=== PATIENT | male | born 1970 | race Caucasian/White ===

== ENCOUNTER 2020-05-14 20:00 | Outpatient (CLI) | payer OTHER, BC, SELFPAY | END 2020-05-14 20:01 | disposition home or self-care (01) | LOC: SLEEP 05-15 09:07 | PROVIDERS: Family Provider Internal Medicine; PCP Nurse Practitioner; Visit Provider Nurse Practitioner Family | DX: G47.33 Obstructive sleep apnea (adult) (pediatric) (principal) | CPT/HCPCS: 95810 ==

== ENCOUNTER 2020-06-11 20:00 | Outpatient (CLI) | payer OTHER, BC, SELFPAY | END 2020-06-11 20:01 | disposition home or self-care (01) | LOC: SLEEP 06-12 10:13 | PROVIDERS: Family Provider Internal Medicine; PCP Nurse Practitioner; Visit Provider Nurse Practitioner Family | DX: G47.33 Obstructive sleep apnea (adult) (pediatric) (principal) | CPT/HCPCS: 95811 ==

== ENCOUNTER 2021-11-13 10:24 | Outpatient (CLI) | payer OTHER, BC, SELFPAY ==
--- NOTE | 2021-11-13 10:37 | XR_ITS ---
WS: [id number] Chest 2 views, 11/13/2021 Clinical Data: BRONCHITIS Comparison: PA chest, 07/22/2011. Findings: No nodules, masses or effusions are seen. The heart is normal. The pulmonary vascularity is not increased. No pneumonia or pneumothorax is seen. XR/XR chest 2V* [id number] Impression: Negative chest.
== END 2021-11-13 10:25 | disposition home or self-care (01) ==
LOC: RAD 10:28
PROVIDERS: PCP Nurse Practitioner Family; Visit Provider Nurse Practitioner Family
DX: J40 Bronchitis, not specified as acute or chronic (principal); R21 Rash and other nonspecific skin eruption
CPT/HCPCS: 71046

== ENCOUNTER → 2022-02-03 15:03 | Outpatient (BNVA) | payer OTHER, BC, SELFPAY | PROVIDERS: PCP Nurse Practitioner Family; Visit Provider Internal Medicine Pulmonary Disease | DX: R06.09 Other forms of dyspnea (principal); R06.2 Wheezing; R06.02 Shortness of breath; R05.3 Chronic cough | CPT/HCPCS: 36415; 82785; 85025; 86003 ==

== ENCOUNTER 2022-02-20 06:32 | Day surgery (SDC) | payer OTHER, BC, SELFPAY ==
[2022-02-18 10:20] VITALS: BMI 27.1
[2022-02-20 06:49] VITALS: BP 125/90; PULSE 68; RESP 18; TEMP 36.1; O2SAT 96
[2022-02-20] MEDS: sodium chloride 0.9% 1,000 ML 30 ML IV (07:00)
--- NOTE | 2022-02-20 07:54 | W.PM.OPSFHP ---
Same Day Surgery H&P Indication for Procedure/HPI DATE OF PROCEDURE: February 20, 2022 CHIEF COMPLAINT/INDICATIONFOR SURGICAL PROCEDURE: Screening colonoscopy PREOP DIAGNOSIS: Screening colonoscopy PLANNED PROCEDURE: Operation Date: 02/20/22 08:00 Proposed Procedures p Colonoscopy [id number](Not Applicable) - Roby Walters MD This is a pleasant 51 years old gentleman never had a colonoscopy before and denies bleeding per rectum, he does give history of his father at age of 82 diagnosed with colon cancer. No history of weight loss, no previous abdominal surgeries. ROS All systems have been reviewed negative except as for the above or per problem list. Medications/Allergies* Allergies/Adverse Reactions Allergy/AdvReac Type Severity Reaction Status Date / Time Penicillins Allergy Intermediate Unknown Verified 02/20/22 07:58 Pertinent History/Comorbid Conditions* Social History Smoking and tobacco status: former smoker Pertinent Exam Findings alert, oriented x 3, clear to auscultation bilaterally, regular rate & rhythm and procedure specific exam findings (Abdominal exam not tender nondistended soft) Recommendations Surgery/Procedure today (Colonoscopy) Other Plans: Plan of care; After thorough history and physical examination and reviewing the chart, plan to perform screening colonoscopy. I discussed with the patient in details the risks,benefits,alternatives and indications.The risk of aspiration, bleeding, soft tissue injury, perforation of the colon and other potential concomitant complications were explained to the patient in details,also the potential need for Laproscoy/Laparotomy to repair any related complications including but not limited to colectomy and or Closotomy.The patient understood this well and did agree to proceed. Rationale was carefully and clearly discussed with the patient.Appropriate informed consent have been reviewed and signed All questions have been answered and all concerns have been addressed to patient's satisfaction. Verbal and written Instructions were given to the patient for colonoscopy prep Coding Level of Care Code Acute Human Anatomy Teacher for Kurt Kelly
[2022-02-20 08:22] VITALS: BP 99/71; PULSE 59; RESP 16; TEMP 36.3; O2SAT 96
[2022-02-20 08:49] VITALS: BP 128/87; PULSE 57; RESP 18; O2SAT 98
--- NOTE | 2022-02-20 13:35 | ANE.PACU2 ---
Inpatient post-anesthesia follow up: Airway intact: Yes Vital signs: Temperature 97.3 F Pulse Rate 57 Respiratory Rate 18 Blood Pressure 128/87 Pulse Oximetry 98 Oxygen Delivery Me thod Room Air Oxygen Flow Rate Fraction of Inspir ed Oxygen Hydration adequate: Yes Nausea and vomiting: No Pain level: 1 Mental status: Baseline
== END 2022-02-20 08:58 | disposition home or self-care (01) ==
PROVIDERS: PCP Nurse Practitioner Family; Visit Provider Surgery
PROC: 0DJD8ZZ Inspection of Lower Intestinal Tract, Via Natural or Artificial Opening Endoscopic (ICD-10-PCS; CPT 45378; principal; 2022-02-20 08:00)
DX: Z12.11 Encounter for screening for malignant neoplasm of colon (principal); D12.4 Benign neoplasm of descending colon; Z87.891 Personal history of nicotine dependence; Z88.0 Allergy status to penicillin; Z80.0 Family history of malignant neoplasm of digestive organs
CPT/HCPCS: 45385; 88305; J2001; J2704; J7030

== ENCOUNTER 2022-03-04 12:39 | Outpatient (CLI) | payer OTHER, BC, SELFPAY ==
--- NOTE | 2022-03-04 14:58 | PFTS_ITS ---
Date of Study:03/04/22 Date of Dictation: MECHANICS: Forced vital capacity (FVC) is . Forced expiratory volume in one second (FEV1) is . FEV1/FVC is . FLOW VOLUME LOOP: . LUNG VOLUMES: Total lung capacity (TLC) is . Residual volume (RV) is . DIFFUSING CAPACITY FOR CARBON MONOXIDE: . INTERPRETATION: The pulmonary function tests are . mechanics and lung volumes. Gas exchange (DLCO) is . MTDD
== END 2022-03-04 12:40 | disposition home or self-care (01) ==
PROVIDERS: PCP Nurse Practitioner Family; Visit Provider Internal Medicine Pulmonary Disease
DX: R05.3 Chronic cough (principal); U09.9 Post COVID-19 condition, unspecified; R06.09 Other forms of dyspnea; R06.2 Wheezing
CPT/HCPCS: 94010; 94726; 94729

== ENCOUNTER → 2022-06-24 15:41 | Outpatient (BNVA) | payer OTHER, BC, SELFPAY | PROVIDERS: PCP Nurse Practitioner Family; Referring Provider Nurse Practitioner Family; Visit Provider Orthopaedic Surgery | DX: M54.9 Dorsalgia, unspecified (principal); M47.816 Spondylosis without myelopathy or radiculopathy, lumbar region; M48.07 Spinal stenosis, lumbosacral region | CPT/HCPCS: 72110 ==

== ENCOUNTER 2022-08-05 07:07 | Outpatient (CLI) | payer OTHER, BC, SELFPAY ==
--- NOTE | 2022-08-05 07:18 | MR_ITS ---
WS: [id number] MRI LUMBAR SPINE NONCONTRAST HISTORY: Chronic low back pain down both legs. No injury. Remote history of lumbar spine surgery. COMPARISON: 08/31/2013 TECHNIQUE: Sagittal and axial multisequence imaging is submitted. Normal lumbar alignment with no compression fractures or marrow edema. Disc spaces and vertebral body heights are well-preserved. Conus terminates normally at L1. L1-L2: Normal. L2-L3: Mild thickening flavum and facet joint hypertrophy. No stenosis. L3-L4: Moderate ligamentum flavum and facet arthritis. Very minimal encroachment into the subarticula r recesses. No high-grade stenosis. L4-L5: Mild annular disc bulge with a central shallow disc protrusion. Moderate ligamentum flavum and facet arthritis. Findings are resulting in mild central with bilateral subarticular recess and damon inal stenosis. There is disc contacting the LEFT exiting L4 nerve root. L5-S1: Diffuse annular disc bulge with a central disc protrusion. Larger disc protrusion in the LEFT foramen with near complete effacement of fat. Bilateral facet joint arthritis. Moderate to severe LEF T foraminal and mild subarticular recess stenosis. Vertebral body osteophytes are also contributing t o the LEFT foraminal stenosis along with facet joint arthritis. LEFT S1 nerve root is larger and slig htly more edematous than the RIGHT. Similar to the prior study. The disc protrusion previously descri bed in the LEFT subarticular recess is resolved. MR/MR lumbar spine wo con* [id number] IMPRESSION: 1. Moderate to severe LEFT foraminal stenosis at L5-S1. Stenosis due to combin ation of facet joint arthritis, disc protrusion and vertebral body osteophytes. Significant encroachment upon the L5 nerve root. 2. Previous the described LEFT subarticular disc protrusion at L5-S1 has resol lea. 3. Mild enlargement of the LEFT S1 nerve root similar to the prior study. 4. Mild subarticular recess encroachment at L3-4 with no stenosis. 5. Mild central and bilateral subarticular recess and foraminal stenosis at L4 -5. There is disc contacting the LEFT exiting L4 nerve root.
== END 2022-08-05 07:08 | disposition home or self-care (01) ==
PROVIDERS: PCP Nurse Practitioner Family; Visit Provider Nurse Practitioner Family
DX: M54.9 Dorsalgia, unspecified (principal)
CPT/HCPCS: 72148

== ENCOUNTER → 2023-06-12 10:42 | Outpatient (BNVA) | payer OTHER, BC, SELFPAY | PROVIDERS: PCP Nurse Practitioner Family; Visit Provider Family Medicine | DX: Z01.818 Encounter for other preprocedural examination (principal) | CPT/HCPCS: 80053; 81000; 85025 ==

== ENCOUNTER 2023-06-15 09:39 | Day surgery (SDC) | payer OTHER, BC, SELFPAY ==
[2023-06-15] VITALS (12 sets, daily range): BP systolic 120–151; BP diastolic 77–92; PULSE 50–74; RESP 17–21; TEMP 36.2–36.7; O2SAT 94–98; BMI 27.8
--- NOTE | 2023-06-15 | XR_ITS ---
WS: [id number] Lumbar spine, C ARM fluoroscopy, 06/15/2023 Clinical Data: decompression. or pic Comparison: Lumbar spine, 06/24/2022 Findings: Dr. Heath performed a lumbar decompression. Impression: Lumbar decompression.
[2023-06-15] MEDS: sodium chloride 0.9% 1,000 ML 30 ML IV (10:16)
[2023-06-15] MEDS: HYDROmorphone 1 mg/mL INJ 1 mL 0.5 MG IVP (12:12)
--- NOTE | 2023-06-15 12:21 | W.PM.OPSUD ---
Surgery/Procedure H&P Update DATE OF PROCEDURE: June 15, 2023 DATE H&P PERFORMED: 06/12/23 H&P UPDATE INFORMATION: I have reviewed H&P completed within last 30 days, I have examined patient prior to procedure and No changes to prior documentation PREOP DIAGNOSIS: Lumbar stenosis PLANNED PROCEDURE: Operation Date: 06/15/23 11:40 Proposed Procedures p Lumbar Spine Decompression stand on left/ L4-5 minimally invasive decompression as well as a L5-S1 minimally invasive decompression(Not Applicable) - Gael Heath DO
[2023-06-15] MEDS: vancomycin 1,000 MG in sodium chloride 0.9% 250 ML 250 MG IV (13:06)
--- NOTE | 2023-06-15 13:09 | ANES.PREANE2 ---
Pre-Anesthetic Assessment Height/Weight: Height 1.83 m Weight 92.986 kg Temp Pulse Resp BP Pulse Ox O2 Del Method 97.3 F L 74 18 121/92 96 Room Air 06/15/23 10:06 06/15/23 10:06 06/15/23 10:06 06/15/23 10:06 06/15/23 10:06 06/15/23 10:07 Preop Diagnosis: Lumbar stenosis Operation Date: 06/15/23 11:40 Proposed Procedures p Lumbar Spine Decompression stand on left/ L4-5 minimally invasive decompression as well as a L5-S1 minimally invasive decompression(Not Applicable) - Gael Heath DO Familial anesthetic complications: none Was Beta Tu taken within 24 hours: N/A Was Clonidine taken within 24 hours: N/A Last intake: Intake Last Liquid Date 06/14/23 Last Liquid Time 19:00 Last Solid Date 06/14/23 Last Solid Time 19:00 Social No alcohol and No tobacco Exam alert, oriented x 3, clear to auscultation bilaterally and regular rate & rhythm Airway Submandibular: within normal limits Cervical ROM: within normal limits Mallampati: Class II Dentition: full CV/HEM Hypertension Musc/skel Lower Back Pain and Osteoarthritis/DJD Anesthetic Plan ASA status: 2 Anesthesia: General Medications/Allergies Home Medications Medication Instructions Recorded Confirmed Last Taken Type losartan 25 mg tablet 25 mg PO DAILY #30 tabs 11/11/22 06/15/23 06/14/23 21:00 Rx escitalopram oxalate 10 mg tablet 10 mg PO DAILY 06/12/23 06/12/23 06/12/23 History (Lexapro) Allergies Allergy/AdvReac Type Severity Reaction Status Date / Time Penicillins Allergy Intermediate Unknown Verified 06/15/23 10:02 Current Medications Generic Name Dose Route Start Last Admin Trade Name Freq PRN Reason Stop Dose Admin Sodium Chloride 1,000 mls @ 30 mls/hr 06/15/23 10:00 06/15/23 10:16 Sodium Chloride 0.9% IV 06/16/23 09:59 30 mls/hr .Q24H AUGUSTUS Administration Vancomycin HCl 1,000 mg/ 250 mls @ 250 mls/hr 06/15/23 12:49 06/15/23 13:06 Sodium Chloride IV 06/15/23 13:48 250 mls/hr ONCE ONE Administration Protocol [facility] Anesthesia Medical History Family history of colon cancer in father Social History Smoking and tobacco/nicotine status: current every day tobacco/nicotine user (chew) Data Anesthesia Cardiac Studies: No Data to Display
[2023-06-15] MEDS: thrombin 5,000 unit SDV 5000 UNIT XX (13:34)
[2023-06-15] MEDS: lidocaine-epi 2% 20 mL INJ INJECTION (13:55)
--- NOTE | 2023-06-15 14:36 | P.OP_ITS ---
Operative Report Date of procedure: June 15, 2023 Pre-op diagnosis: Lumbar stenosis with neurogenic claudication Post-op diagnosis: same Procedure done: 1. L4-5 laminectomy with partial facetectomy 2. Revision L5-S1 laminectomy with partial facetectomy Surgeon: Gael Heath DO After School Driver: Tino Sanchez After School Driver: The surgical scrub technician, Tino Sanchez, PAC was needed for his expertise under the microscope. He was important and necessary throughout the procedure to complete in a safe and timely manner. He assisted with patient positioning prepping and draping tissue retraction suctioning of the operative field protection of the dural sac and tissue closure Estimated blood loss (mL): 5 Complications: Dural tear at L5-S1. Procedure: 1. L4-5 laminectomy with partial facetectomy 2. Revision L5-S1 laminectomy with partial facetectomy Patient is brought to the operative suite. After undergoing anesthesia they are placed in the prone position. All areas of impingement are well padded. Patient is then prepped and draped in the normal sterile fashion. A skin incision is made over the L4/5 level. This is confirmed under c-arm guidance. A series of dilators are passed and the tubular retractor is docked on the L4 lamina. A bovie is used to clear the soft tissue off the lamina and the L 4/5 facet joint. A high speed mac is then used to perform the laminectomy and take down the medial aspect of the L 4/5 facet joint. A kerrison rongeure was then used to take down the remaining lamina and smooth the edge of the laminectomy up to the point where the ligamentum flavum attaches. Attention was then brought to the medial aspect of the facet joint. The remaining medial aspect of the superior and inferior aspect of the facet joint were taken down with the kerrison from the pedicle of L4 to L 5. The facet joint had significant hypertrophy. Attention was then brought to the Ligamentum Flavum. The ligament was taken down from the lamina of L4 to L5 and out medially to the remaining facet joint. The ligament was thick. The dura was then exposed. The dura was in good repair. The L4 nerve was then traced with a curette out the L4/5 foramen and found to be adequately decompressed. The L5 nerve was traced with a curette around the L5 pedicle. The lateral recess was opened with a kerrison helping to further decompress the L5 nerve. Wound is then irrigated copiously with saline and surgiflo is used to stop any bleeding. The tubular retractor is removed and the A skin incision is made over the L5/s1 level. This is confirmed under c-arm guidance. A series of dilators are passed and the tubular retractor is docked on the L5 lamina. A bovie is used to clear the soft tissue off the lamina and the L 5/S1 facet joint. A high speed mac is then used to perform the laminectomy and take down the medial aspect of the L 5/S1 facet joint. A kerrison rongeure was then used to take down the remaining lamina and smooth the edge of the laminectomy up to the point where the ligamentum flavum attaches. Attention was then brought to the medial aspect of the facet joint. The remaining medial aspect of the superior and inferior aspect of the facet joint were taken down with the kerrison from the pedicle of L5 to s1. The facet joint had significant hypertrophy. Attention was then brought to the Ligamentum Flavum. The ligament was taken down from the lamina of L5 to S1 and out medially to the remaining facet joint. The ligament was thick. The dura was then exposed. The L5 nerve was then traced with a curette out the L5/S1 foramen and found to be adequately decompressed. The S1 nerve was traced with a curette around the S1 pedicle. The lateral recess was opened with a kerrison helping to further decompress the LS1 nerve. There is a small tear in the dura getting scar tissue off of the nerve. This was later patched with DuraGen and DuraSeal. Wound is then irrigated copiously with saline and surgiflo is used to stop any bleeding. The tubular retractor is removed and the wound is closed with vicryl and monocryl suture. Glue is then used to protect the wound. A sterile dressing is then placed. Patient was then placed in the supine position and transferred to the PACU in stable condition.
[2023-06-15] MEDS: HYDROcodone-acetaminophen 5-325 mg Tablet 1 TAB PO (15:07)
--- NOTE | 2023-06-15 15:52 | ANE.PACU2 ---
Inpatient post-anesthesia follow up: Airway intact: Yes Vital signs: Temperature 97.3 F Pulse Rate 60 Respiratory Rate 18 Blood Pressure 142/87 Pulse Oximetry 96 Oxygen Delivery Me thod Room Air Oxygen Flow Rate 6 Fraction of Inspir ed Oxygen Hydration adequate: Yes Nausea and vomiting: No Pain level: 3 Mental status: Baseline
== END 2023-06-15 15:45 | disposition home or self-care (01) ==
PROVIDERS: PCP Nurse Practitioner Family; Visit Provider Orthopaedic Surgery
PROC: (CPT 63005; principal; 2023-06-15 11:30)
DX: M48.062 Spinal stenosis, lumbar region with neurogenic claudication (principal); G97.41 Accidental puncture or laceration of dura during a procedure; I10 Essential (primary) hypertension; Z80.0 Family history of malignant neoplasm of digestive organs; F17.220 Nicotine dependence, chewing tobacco, uncomplicated
CPT/HCPCS: 63047; 63048; 72020; 76000; J1100; J1170; J1885; J2405; J2704; J2710; J3010; J3370; J3490; J7030; J7050

== ENCOUNTER 2023-06-19 12:15 | Emergency (ER) | payer OTHER, BC, SELFPAY ==
[2023-06-19 12:23] VITALS: BP 135/89; PULSE 78; RESP 16; TEMP 37.2; O2SAT 95; BMI 27.1
--- NOTE | 2023-06-19 13:23 | ED_ITS ---
HPI - Back Pain/Injury 2 General: Chief Complaint: Back Pain/Injury Stated Complaint: post back surgery 06/15, pain/heat, redness Time Seen by Provider: 06/19/23 13:23 Source: patient Mode of arrival: ambulatory Limitations: no limitations History of Present Illness: Patient is a nice 53-year-old male who is 4 days postop from L4-5 laminectomy with partial facetectomy and revision L5-S1 laminectomy with partial facetectomy by Dr. Heath here for complaints of redness/warmth to back near incision, low grade fevers of 100.2 yesterday, and worsening pain. States he began noticing redness about 48 hours following the surgery and states it has continued to spread. MD elicited complaint: back pain and other (recent surgery) Pertinent past history: back surgery Onset (ago): day(s) Timing: constant Severity: severe Location: lumbar spine Radiation: none Exacerbating factors: movement Relieving factors: none Context: other (recent back surgery) Associated symptoms: Reports difficulty walking (secondary to back pain) and fever(s) (reports low grade yesterday 100.2); Deny abdominal pain, dysuria or hematuria Work related injury: No Review of Systems 2 Const: Reports: fever(s) (reports low grade yesterday 100.2) Card: Denies: chest pain Resp: Denies: dyspnea GI: Denies: abdominal pain : Denies: flank pain, dysuria or hematuria Musc: Reports: back pain; Denies: neck pain, extremity pain, extremity swelling, joint pain or joint swelling Skin/Breast: Reports: erythema Neuro: Reports: difficulty walking (secondary to back pain); Denies: headache(s), numbness in extremities, weakness in extremities or sensory changes PFSH ED 2 PFSH: Medical History Family history of colon cancer in father Social History Smoking and tobacco/nicotine status: current every day tobacco/nicotine user (chew) Physical Exam 2 Const: COMMON NORMALS: no acute distress, average body habitus, patient oriented x3, no limitations, healthy appearing, alert and well nourished O RIENTATION/CONSCIOUSNESS: Yes awake, Yes oriented to person, Yes oriented to place and Yes oriented to time Resp: COMMON NORMALS: normal respiratory effort and clear to auscultation bilaterally AUSCULTATION: clear to auscultation bilaterally Cardio: COMMON NORMALS: regular rate and regular rhythm RATE: regular rate RHYTHM: regular rhythm : COMMON NORMALS: Yes no CVA tenderness BLADDER/KIDNEY EXAM: Yes no CVA tenderness Back/Pelvis: COMMON NORMALS: no CVA tenderness THORACIC SPINE/UPPER BACK: N o thoracic spinal tenderness, No paraspinal muscle tenderness and No paraspinal muscle spasm LUMBAR SPINE/LOWER BACK: Yes lumbar spinal tenderness and Yes other soft tissue findings PELVIS: Yes buttocks normal and No sciatic notch tenderness SACRUM: no tenderness COCCYX: no tenderness OTHER: patient with intact lumbar incision; directly around incision site looks okay but he does have large areas of erythema/warmth to bilateral lower flank areas; patient denies using a heating pad BACK IMAGE (MALE): 1. erythema/warmth 2. erythema/warmth Extremity: COMMON NORMALS: normal to inspection, full ROM, capillary refill normal, no joint enlargement, no clubbing, cyanosis or edema, no calf tenderness and no pedal edema GENERAL: Yes normal exam except as noted Neuro: COMMON NORMALS: patient oriented x3, moves all extremities, no focal motor deficits and no sensory deficits noted SENSORIUM/ORIENTATION: Yes alert, Yes oriented to person, Yes oriented to place and Yes oriented to time Skin: NARRATIVE SKIN EXAM: see above for pertinent skin findings Course 2 Consultations: Consultation #1: Dr. Heath-recommended PO antibiotics and would see in clinic on Thursday; did not recommend any imaging at this time Vital Signs: Vital signs: Vital Signs Temperature 98.8 F 06/19/23 13:24 Pulse Rate 71 06/19/23 14:33 Respiratory Rate 16 06/19/23 12:23 Blood Pressure 135/89 06/19/23 12:23 Pulse Oximetry 97 06/19/23 14:33 Oxygen Delivery Me thod Room Air 06/19/23 14:33 MDM - Back Pain/Injury Medical Decision Making Patient is a nice 53-year-old male who presents to ED today with complaint of redness to his bilateral lower flanks following his lumbar surgery by Dr. Heath approximately 4 days ago. His surgical incision actually appears well and intact. There is no drainage. He does have erythema and warmth to bilateral lower flanks. He arrives with normal vital signs. He is not tachycardic or febrile. He has a normal white count. Other blood work showing transaminitis. He has never had this before. This could be related to recent surgery/medications. Recommend this get rechecked in 2 weeks. CRP is elevated. I spoke to Dr. Heath and sent him images of patient's incision and back. He agreed with the IV Vancomycin given here. Recommending p.o. antibiotics and he will see patient on Thursday. He did not recommend any imaging at this time. Patient was given strict return precautions. Patient is requesting a muscle relaxer as he does not like taking his pain medication. Medical Records I reviewed the patient's medical records. Labs I reviewed the patient's lab results. 06/19/23 13:36 06/19/23 13:36 Laboratory Results WBC 9.73 10^3/uL (3.29-11.43) 06/19/23 13:36 RBC 4.84 10^6/uL (3.85-5.65) 06/19/23 13:36 Hgb 15.60 g/dL (11.27-16.99) 06/19/23 13:36 Hct 45.2 % (37-53) 06/19/23 13:36 MCV 93.4 fl (82-101) 06/19/23 13:36 MCH 32.2 pg (27-33) 06/19/23 13:36 MCHC 34.5 g/dL (30-55) 06/19/23 13:36 RDW 12.2 % (12.1-15.1) 06/19/23 13:36 Plt Count 314 10^3/cmm (157-399) 06/19/23 13:36 MPV 8.7 fL (7.4-10.4) 06/19/23 13:36 Neut % (Auto) 59.1 % 06/19/23 13:36 Lymph % (Auto) 22.7 % 06/19/23 13:36 [place] % (Auto) 12.2 % 06/19/23 13:36 Eos % (Auto) 5.1 % 06/19/23 13:36 Baso % (Auto) 0.2 % 06/19/23 13:36 Neut # (Auto) 5.74 10^3/uL (1.8-7.7) 06/19/23 13:36 Lymph # (Auto) 2.2 10^3/uL (0.8-4.8) 06/19/23 13:36 [place] # (Auto) 1.2 10^3/uL (0.2-0.9) H 06/19/23 13:36 Eos # (Auto) 0.5 10^3/uL (0.0-0.8) 06/19/23 13:36 Baso # (Auto) 0.0 10^3/uL (0.0-0.1) 06/19/23 13:36 Nucleated RBC % (auto) 0 % 06/19/23 13:36 Nucleated RBCs # 0.0 /100WBC 06/19/23 13:36 Sodium 138 mmol/L (136-145) 06/19/23 13:36 Potassium 4.1 mmol/L (3.5-5.1) 06/19/23 13:36 Chloride 99 mmol/L (98-107) 06/19/23 13:36 Carbon Dioxide 28 mmol/L (22-29) 06/19/23 13:36 Anion Gap 15.1 (5-19) 06/19/23 13:36 BUN 13 mg/dL (6-20) 06/19/23 13:36 Creatinine 1.0 mg/dL (0.7-1.2) 06/19/23 13:36 GFR Calculation 78.2 mL/min (90-130) L 06/19/23 13:36 Glucose 91 mg/dL (65-115) 06/19/23 13:36 Calculated Osmolality 286 mOsm/kg (285-295) 06/19/23 13:36 Lactic Acid 0.7 mmol/L (0.5-2.2) 06/19/23 13:36 Calcium 9.4 mg/dL (8.5-10.5) 06/19/23 13:36 Total Bilirubin 0.8 mg/dL (0.15-1.2) 06/19/23 13:36 AST 88 U/L (0-40) H 06/19/23 13:36 ALT 115 U/L (0-41) H 06/19/23 13:36 Alkaline Phosphatase 136 U/L (40-130) H 06/19/23 13:36 C-Reactive Protein 143.8 mg/L (0.0-4.9) H 06/19/23 13:36 Total Protein 7.0 g/dL (6.6-8.7) 06/19/23 13:36 Albumin 4.0 g/dL (3.5-5.2) 06/19/23 13:36 Globulin 3.0 g/dL (1.3-4.6) 06/19/23 13:36 No radiology studies performed this visit Discharge Plan Discharge Patient Disposition: Home Clinical Impression: Elevated LFTs, Cellulitis of back Condition: Stable Prescriptions: New methocarbamol 500 mg tablet 1,000 mg PO Q8H Qty: 30 0RF Bactrim DS 800-160 mg tablet 2 tab PO BID 7 Days Qty: 28 0RF No Action escitalopram oxalate [Lexapro] 10 mg tablet 10 mg PO DAILY losartan 25 mg tablet 25 mg PO DAILY Qty: 30 3RF hydrocodone-acetaminophen 5-325 mg tablet See Rx Instructions .ROUTE .COMPLEX Rx Instructions: 1 - 2 tab orally every 4 to 6 hours as needed for pain. Discharge Orders: Discharge ED (Routine); Ordered 06/19/23 Ordered By: Ciara Kilgore Referrals: Chloe Balderas FNP [Primary Care Provider] - Activity Restrictions/Additional Instructions: As we discussed fill your antibiotics and start them immediately. Continue to monitor redness closely. You need to return to the emergency department for worsening pain, worsening redness, fevers, generally feeling worse or unwell, severe headache, numbness to your lower extremities, trouble urinating or having bowel movements, or any other concerns you may have. As we discussed Dr. Heath's office should reach out to you on Thursday to set you up with your appointment. We also discussed how your labs today showing elevations to your liver enzymes. These have never been elevated before. Most likely these are just transient/temporary related to your recent surgery but I would like them rechecked through your primary care office in 2 weeks. You need to return to the emergency department for onset of severe abdominal pain, repetitive episodes of vomiting, yellowing to your skin or eyes, or any other concerns you may have. I hope you begin to feel better soon. Coding Level of Care Code ED Vacuum System Tester for Kurt Kelly
[2023-06-19 13:24] VITALS: TEMP 37.1
[2023-06-19] MEDS: ondansetron 2 mg/ML SDV 2 mL 4 MG IVP (13:41)
[2023-06-19] MEDS: morphine 4 mg/mL SDV 1 mL IVP (13:42)
[2023-06-19 14:02] LABS: Basophils % 0.2 %; Eosinophils # 0.5 10^3/uL (0.0-0.8); Eosinophils % 5.1 %; Hematocrit 45.2 % (37-53); Lymphocytes # 2.2 10^3/uL (0.8-4.8); Lymphocytes % 22.7 %; Mean Corpuscular HGB Conc 34.5 g/dL (30-55); Mean Corpuscular Hemoglobin 32.2 pg (27-33); Mean Corpuscular Volume 93.4 fl (82-101); Mean Platelet Volume 8.7 fL (7.4-10.4); Monocytes # 1.2 10^3/uL (0.2-0.9); Monocytes % 12.2 %; Neutrophils # 5.74 10^3/uL (1.8-7.7); Neutrophils % 59.1 %; Nucleated Red Blood Cells % 0 %; Platelet Count 314 10^3/cmm (157-399); Red Blood Count 4.84 10^6/uL (3.85-5.65); Red Cell Distribution Width 12.2 % (12.1-15.1); White Blood Count 9.73 10^3/uL (3.29-11.43)
[2023-06-19 14:22] LABS: Lactic Sepsis W/Reflex 0.7 mmol/L (0.5-2.2)
[2023-06-19] MEDS: vancomycin 1,000 MG in sodium chloride 0.9% 250 ML 250 MG IV (14:22)
[2023-06-19 14:23] LABS: Alanine Aminotransferase 115 U/L (0-41); Alkaline Phosphatase 136 U/L (40-130); Anion Gap 15.1 (5-19); Aspartate Amino Transferase 88 U/L (0-40); Blood Urea Nitrogen 13 mg/dL (6-20); C Reactive Protein 143.8 mg/L (0.0-4.9); Calcium 9.4 mg/dL (8.5-10.5); Carbon Dioxide 28 mmol/L (22-29); Chloride 99 mmol/L (98-107); Glomerular Filtration Rate 78.2 mL/min (90-130); Glucose 91 mg/dL (65-115); Osmolality Calculated 286 mOsm/kg (285-295); Potassium 4.1 mmol/L (3.5-5.1); Sodium 138 mmol/L (136-145); Total Bilirubin 0.8 mg/dL (0.15-1.2)
[2023-06-19 14:33] VITALS: PULSE 71; O2SAT 97
[2023-06-19] MEDS: orphenadrine 30 mg/mL Inj 2 mL 60 MG IVP (14:36)
== END 2023-06-19 15:36 | disposition home or self-care (01) ==
PROVIDERS: Emergency Provider Physician Assistant; PCP Nurse Practitioner Family
DX: L03.312 Cellulitis of back [any part except buttock and flank] (principal); R79.89 Other specified abnormal findings of blood chemistry; F17.220 Nicotine dependence, chewing tobacco, uncomplicated
CPT/HCPCS: 80053; 83605; 85025; 86140; 87040; 96365; 96375; 99284; J2270; J2360; J2405; J3370; J7050

== ENCOUNTER 2023-06-29 10:44 | Emergency (ER) | payer OTHER, BC, SELFPAY ==
[2023-06-29 10:51] VITALS: BP 161/91; PULSE 70; RESP 18; TEMP 36.8; O2SAT 97; BMI 27.1
--- NOTE | 2023-06-29 11:25 | ED_ITS ---
HPI - Fever 2 General: Chief Complaint: Fever Stated Complaint: post op issues with back Time Seen by Provider: 06/29/23 10:58 History of Present Illness: 53-year-old male presents emergency depa rtment along with his son. Patient reports he has had low-grade fevers for the last 2 or 3 days. Last night he reports he had headache, muscle soreness, and severe fatigue. He reports a temperature of 100.5 degrees. Patient has a relevant recent medical history including having had L4-5 laminectomy with partial facetectomy and revision of L5-S1 laminectomy with partial facetectomy due to spinal stenosis with neurogenic claudication. This was performed by Dr. Gael Heath on June 15, 2023. Having read the surgical note, there was complication of a minor tear in the dura. It was patched according to the surgical notes. Patient then presented to the emergency department on June 19, postoperative day #4. He had what was believed to be cellulitis of the lumbar region. It looks like Dr. Heath was consulted and patient was placed on bactrim DS two tab po bid for 7 days--last dose yesterday morning per patient. Patient notes today he is really having pretty minimal symptoms. He has some mild pain in the base of his head. He is not having any back pain. He denies pain with flexing his neck or twisting his neck. His noted that he had swelling to the left of the surgical incision. There is no redness or warmth associated with it. They noticed this last night. He notes that the cellulitis with the warmth and redness had resolved with antibiotics. Patient denies any immunocompromise. Associated symptoms: Reports headache(s); Deny abdominal pain, flank pain, chest pain, confusion, diarrhea, dysuria, extremity pain, nausea or vomiting Review of Systems 2 General: Reports: 10 or more systems reviewed and unremarkable except in HPI and below Narrative: No LE pain,swelling, redness. No neck stiffness but did have neck/shoulder pain. Eyes: Denies: change in vision ENMT: Denies: throat pain Card: Denies: chest pain, edema or syncope Resp: Denies: dyspnea or productive cough GI: Denies: abdominal pain, nausea, vomiting or diarrhea : Denies: flank pain, dysuria or urinary frequency Musc: Reports: neck pain and back pain (nothing new or changed--has had mild pain since surgery); Denies: extremity pain, extremity swelling, joint swelling, joint redness, joint stiffness, limited range of motion or muscle weakness Skin/Breast: Denies: rash or erythema Neuro: Reports: headache(s); Denies: numbness in extremities, weakness in extremities, sensory changes, lack of coordination, difficulty walking, dizziness or confusion PFSH ED 2 PFSH: Medical History Family history of colon cancer in father Social History Smoking and tobacco/nicotine status: current every day tobacco/nicotine user (chew) Physical Exam 2 Narrative: EXAM NARRATIVE: No meningeal signs. Straight leg raise does not cause pain in the back or neck. There is swelling and some possible mild induration to the left of the lumbar surgical incision. It extends several inches cranially and caudally as well as laterally. There is no discharge from the incision site. The incision site is without calor, dolor, rubor. Patient is neurovascularly intact. His mental status is normal. He is in no distress. Const: COMMON NORMALS: no limitations, alert and well nourished EXAM LIMITATIONS: no altered mental status HENMT: COMMON NORMALS: normocephalic, atraumatic and external ears normal H EAD & SCALP: normocephalic and atraumatic EXTERNAL EAR: Yes external ears normal MOUTH: no muffled voice Eye: COMMON NORMALS: conjunctivae normal and no scleral icterus C ONJUNCTIVA: Yes conjunctivae normal Neck/C-Spine: GENERAL: Yes normal visual inspection and Yes trachea midline Resp: COMMON NORMALS: normal respiratory effort, No use of accessory muscles and clear to auscultation bilaterally AUSCULTATION: clear to auscultation bilaterally Cardio: COMMON NORMALS: regular rate and regular rhythm RATE: regular rate RHYTHM: regular rhythm GI: COMMON NORMALS: non-tender PALPATION: No Guarding due to palpation present (GI) Extremity: COMMON NORMALS: normal to inspection Neuro: COMMON NORMALS: moves all extremities, no focal motor deficits and no sensory deficits noted SENSORIUM/ORIENTATION: Yes alert SPEECH: speech normal Psych: COMMON NORMALS: mental status grossly normal, Normal thought process present, cooperative, normal affect and speech normal SPEECH: Yes normal speech THOUGHT PROCESS: Normal thought process present Skin: COMMON NORMALS: no rashes or lesions noted, turgor normal and no jaundice GENERAL SKIN EXAM: no rashes or lesions noted and turgor normal Course 2 Vital Signs: Vital signs: Vital Signs Temperature 98.3 F 06/29/23 10:51 Pulse Rate 70 06/29/23 10:51 Respiratory Rate 18 06/29/23 10:51 Blood Pressure 161/91 06/29/23 10:51 Pulse Oximetry 97 06/29/23 10:51 Oxygen Delivery Me thod Room Air 06/29/23 10:51 MDM - Fever Medical Decision Making 53-year-old male presents emergency department with low-grade fevers in the setting of a recent spinal surgery with known complication of dural tear as well as suspected postoperative cellulitis in the emergency department on 19 June. He finished his antibiotics yesterday morning and yesterday evening developed body aches and headache as well as temperature of 100.5 degrees. Patient is alert, oriented, and in no distress now. He does not exhibit any meningeal signs and has no neurologic deficits. However, he does have induration and swelling to the left of his surgical incision extending both craniocaudally and laterally. Considerations would include subcutaneous infection/abscess, dural leak, bacteremia, discitis, osteomyelitis, meningitis, other. I asked for a consult from orthopedic surgery. Dr. Pleitez is on for Dr. Heath. He did not answer, message was left. Radio Repairer attempted to call Dr Heath--she lft a message to call back about post op patient have attempted to call the injection molding process technician to see if he would be willing. And able to perform an MRI of the lumbar spine. I do not want to perform a lumbar puncture until I have some imaging to determine what the swelling is around the incision site. I do not want to puncture through an infection and because seeding of the cerebrospinal fluid and associated space. I have ordered a CRP to compare to the prior CRP which was extremely elevated. Since I was unable to get a hold of the injection molding process technician, I went ahead and placed an MRI order. We will continue trying to reach him. At this time, the patient does not have fever. Last antipyretic was at 12:30 AM last night, about 11 hours ago. I am going to allow some time for consultants to call back and figure out imaging; we will hold antibiotics for short period of time until we can complete these tasks. If there is going to be a long delay, I will initiate antibiotics. 1145pm Discussed case with Dr Pleitez. He's going to try and touch base with Dr Heath and we'll decide on plan. UPDATE: I have been in discussion with injection molding process technician. He is trying to do MRIs but cannot go do an MRI as he has no backup to run the CT scanner. Since this is a stroke center, a injection molding process technician asked to be available at all times. There is nobody that can come in and relieve him due to staffing. Dr. Pleitez called back after speaking with Dr. Heath. Dr Heath is going to be out of town for a week. Dr. Pleitez does not do spine surgery. We have come to the conclusion that the patient needs to have an MRI of the spine for evaluation of the swelling and fever with known dural tear. There is concern there may be a seroma or possibly even an abscess. I am going to cover the patient with Rocephin and vancomycin here. I discussed with the patient, his son, and his via the phone. They have consented to transfer. [facility] is on ER forced open and has no [facility] beds. [facility] has accepted the patient as a direct admit to Dr King (discussed with hospitalist ERIN Sauer). Sahil is stable to go by private vehicle as soon as abx are completed. Of note, CRP down significantly. WBC only minimally up from prior. Patient without SIRS. Stable for transport. Lab Data 06/29/23 11:50 06/29/23 11:50 Laboratory Results WBC 10.83 10^3/uL (3.29-11.43) 06/29/23 11:50 RBC 4.84 10^6/uL (3.85-5.65) 06/29/23 11:50 Hgb 15.60 g/dL (11.27-16.99) 06/29/23 11:50 Hct 44.9 % (37-53) 06/29/23 11:50 MCV 92.8 fl (82-101) 06/29/23 11:50 MCH 32.2 pg (27-33) 06/29/23 11:50 MCHC 34.7 g/dL (30-55) 06/29/23 11:50 RDW 11.9 % (12.1-15.1) L 06/29/23 11:50 Plt Count 368 10^3/cmm (157-399) 06/29/23 11:50 MPV 8.1 fL (7.4-10.4) 06/29/23 11:50 Neut % (Auto) 59.2 % 06/29/23 11:50 Lymph % (Auto) 27.8 % 06/29/23 11:50 [place] % (Auto) 7.8 % 06/29/23 11:50 Eos % (Auto) 4.5 % 06/29/23 11:50 Baso % (Auto) 0.3 % 06/29/23 11:50 Neut # (Auto) 6.41 10^3/uL (1.8-7.7) 06/29/23 11:50 Lymph # (Auto) 3.0 10^3/uL (0.8-4.8) 06/29/23 11:50 [place] # (Auto) 0.9 10^3/uL (0.2-0.9) 06/29/23 11:50 Eos # (Auto) 0.5 10^3/uL (0.0-0.8) 06/29/23 11:50 Baso # (Auto) 0.0 10^3/uL (0.0-0.1) 06/29/23 11:50 Nucleated RBC % (auto) 0 % 06/29/23 11:50 Nucleated RBCs # 0.0 /100WBC 06/29/23 11:50 Sodium 137 mmol/L (136-145) 06/29/23 11:50 Potassium 4.1 mmol/L (3.5-5.1) 06/29/23 11:50 Chloride 100 mmol/L (98-107) 06/29/23 11:50 Carbon Dioxide 30 mmol/L (22-29) H 06/29/23 11:50 Anion Gap 11.1 (5-19) 06/29/23 11:50 BUN 12 mg/dL (6-20) 06/29/23 11:50 Creatinine 1.2 mg/dL (0.7-1.2) 06/29/23 11:50 GFR Calculation 63.3 mL/min (90-130) L 06/29/23 11:50 Glucose 95 mg/dL (65-115) 06/29/23 11:50 Calculated Osmolality 284 mOsm/kg (285-295) L 06/29/23 11:50 Calcium 9.5 mg/dL (8.5-10.5) 06/29/23 11:50 Total Bilirubin 0.5 mg/dL (0.15-1.2) 06/29/23 11:50 AST 18 U/L (0-40) 06/29/23 11:50 ALT 47 U/L (0-41) H 06/29/23 11:50 Alkaline Phosphatase 119 U/L (40-130) 06/29/23 11:50 C-Reactive Protein 7.5 mg/L (0.0-4.9) H 06/29/23 11:50 Total Protein 6.9 g/dL (6.6-8.7) 06/29/23 11:50 Albumin 4.1 g/dL (3.5-5.2) 06/29/23 11:50 Globulin 2.8 g/dL (1.3-4.6) 06/29/23 11:50 No radiology studies performed this visit Critical Care Time 2 Critical Care Time: Critical Care Time: Yes Total Critical Care Time: 60 Attestation: Patient has potential deep space infection. This required numerous phone calls and consultations as well as multiple repeat evaluations and discussions with the patient and his family. Review of recent visits, surgical note, vitals, administration of IV meds, lab review and interpretation. Discharge Plan Discharge Patient Disposition: Transfer to ED Clinical Impression: Post surgical complication, Fever Condition: Stable Prescriptions: No Action escitalopram oxalate [Lexapro] 10 mg tablet 10 mg PO BEDTIME Tylenol Ex Str Rapid Release 500 mg Tablet 1,000 mg PO Q6H PRN (Reason: Pain) Aleve 220 mg Tablet 440 mg PO Q12H PRN (Reason: Pain) methocarbamol 500 mg tablet 500 mg PO Q8H PRN (Reason: Muscle Spasm) losartan 25 mg tablet 25 mg PO BEDTIME hydrocodone-acetaminophen 5-325 mg tablet 1 - 2 tab PO .EVERY 4-6 HOURS PRN (Reason: Pain) Referrals: Balderas,ERYN Corona [Primary Care Provider] - Coding Level of Care Code ED Platinum Smith for Kurt Kelly
[2023-06-29 11:54] LABS: Basophils % 0.3 %; Eosinophils # 0.5 10^3/uL (0.0-0.8); Eosinophils % 4.5 %; Hematocrit 44.9 % (37-53); Lymphocytes % 27.8 %; Mean Corpuscular HGB Conc 34.7 g/dL (30-55); Mean Corpuscular Hemoglobin 32.2 pg (27-33); Mean Corpuscular Volume 92.8 fl (82-101); Mean Platelet Volume 8.1 fL (7.4-10.4); Monocytes # 0.9 10^3/uL (0.2-0.9); Monocytes % 7.8 %; Neutrophils # 6.41 10^3/uL (1.8-7.7); Neutrophils % 59.2 %; Nucleated Red Blood Cells % 0 %; Platelet Count 368 10^3/cmm (157-399); Red Blood Count 4.84 10^6/uL (3.85-5.65); Red Cell Distribution Width 11.9 % (12.1-15.1); White Blood Count 10.83 10^3/uL (3.29-11.43)
[2023-06-29 12:10] LABS: Alanine Aminotransferase 47 U/L (0-41); Albumin Level 4.1 g/dL (3.5-5.2); Alkaline Phosphatase 119 U/L (40-130); Anion Gap 11.1 (5-19); Aspartate Amino Transferase 18 U/L (0-40); Blood Urea Nitrogen 12 mg/dL (6-20); C Reactive Protein 7.5 mg/L (0.0-4.9); Calcium 9.5 mg/dL (8.5-10.5); Carbon Dioxide 30 mmol/L (22-29); Chloride 100 mmol/L (98-107); Globulin 2.8 g/dL (1.3-4.6); Glomerular Filtration Rate 63.3 mL/min (90-130); Glucose 95 mg/dL (65-115); Osmolality Calculated 284 mOsm/kg (285-295); Potassium 4.1 mmol/L (3.5-5.1); Sodium 137 mmol/L (136-145); Total Bilirubin 0.5 mg/dL (0.15-1.2); Total Protein 6.9 g/dL (6.6-8.7)
[2023-06-29] MEDS: cefTRIAXone 1,000 MG in sodium chloride 0.9% (plus) 50 ML 100 MG IV (13:48)
[2023-06-29 13:50] VITALS: BP 145/89; PULSE 63; RESP 18; O2SAT 98
[2023-06-29] MEDS: vancomycin 1,500 MG/300 ML PIGGYBACK 200 MG IV (14:20)
[2023-06-29] MEDS: HYDROcodone-acetaminophen 10-325 mg Tablet 1 TAB PO (18:10)
[2023-06-29 18:11] VITALS: BP 128/98; PULSE 69; RESP 18; O2SAT 97
[2023-06-29 20:39] VITALS: BP 143/88; PULSE 59; RESP 16; O2SAT 96
[2023-06-29 22:13] VITALS: BP 130/78; PULSE 62; RESP 16; O2SAT 97
[2023-06-29 23:01] VITALS: BP 110/67; PULSE 64; RESP 16; O2SAT 94
[2023-06-30 00:18] VITALS: BP 115/73; PULSE 58; RESP 16; O2SAT 95
[2023-06-30 01:15] VITALS: BP 107/68; PULSE 56; RESP 16; O2SAT 94
[2023-06-30] MEDS: vancomycin 1,250 MG/250 ML PIGGYBACK 250 MG IV (02:00)
[2023-06-30 04:36] VITALS: BP 95/65; PULSE 57; RESP 16; O2SAT 94
[2023-06-30] MEDS: cefTRIAXone 1,000 MG in sodium chloride 0.9% (plus) 50 ML 100 MG IV (06:37)
[2023-06-30 07:16] VITALS: BP 130/93; PULSE 60; RESP 18; O2SAT 97
== END 2023-06-30 08:30 | disposition short-term general hospital (02) ==
PROVIDERS: Emergency Medicine; Emergency Provider Emergency Medicine; PCP Nurse Practitioner Family
DX: R50.82 Postprocedural fever (principal); F17.220 Nicotine dependence, chewing tobacco, uncomplicated
CPT/HCPCS: 80053; 85025; 86140; 87040; 96365; 96366; 96367; 99285; J0696; J3370